=== PATIENT | female | born 1975 | race African-American/Black ===

== ENCOUNTER 2021-09-16 23:37 | Emergency (ER) | payer OTHER ==
[~2021-09-16] VITALS: Ht 167.6 cm; Wt 56.7 kg
--- NOTE | 2021-09-16 23:43 | NUR ---
PATIENT BIBSELF C/O +SI/-HI, PT STATED SHE HAS BEEN WALKING INTO TRAFFIC. PATIENT IS A/O X 3, RR EVEN AND UNLABORED, NO SOB NOTED. PATIENT VSS. PATIENT TAKEN TO ER BED. AMBULATES WITH STEADT GAIT, SKIN INTACT. BELONGINGS TAKEN. WILL CONTINUE TO MONITOR.
--- NOTE | 2021-09-16 23:47 | NUR ---
ECONOMIC FORECASTER AT PT'S BEDSIDE
[2021-09-17 00:07] LABS: CALCIUM, SERUM 9.4 mg/dL (8.5-10.1); CARBON DIOXIDE 29 mmol/L (21-32); CHLORIDE 102 mmol/L (98-107); CREATININE 0.9 mg/dL (0.6-1.3); GLUCOSE 124 mg/dL (74-106); POTASSIUM 3.3 mmol/L (3.5-5.1); SODIUM SERUM 136 mmol/L (136-145); UREA NITROGEN, BLOOD 13 mg/dL (7-18)
[2021-09-17 00:11] LABS: BASOPHILS # (AUTO) 0.1 K/uL (0.0-0.2); BASOPHILS % (AUTO) 0.7 % (0.0-2.0); EOSINOPHILS % (AUTO) 1.7 % (0.0-6.0); HEMATOCRIT 38 % (33-45); HEMOGLOBIN 12.2 g/dL (11.5-14.8); LYMPHOCYTES % (AUTO) 31.1 % (20.0-44.0); MEAN CORPUSCULAR HGB CONC 32 g/dl (31.0-36.0); MEAN CORPUSCULAR VOLUME 88 fL (82-100); MONOCYTES # (AUTO) 0.6 K/uL (0.1-1.30); MONOCYTES % (AUTO) 6.3 % (2.0-12.0); NEUTROPHILS # (AUTO) 5.8 K/uL (1.8-8.9); NEUTROPHILS % (AUTO) 60.2 % (43.0-81.0); PLATELET COUNT (AUTO) 202 K/uL (150-450); RED BLOOD CELL COUNT(AUTO) 4.31 MIL/uL (4.0-5.2); WHITE BLOOD COUNT (AUTO) 9.7 K/uL (4.3-11.0)
[2021-09-17 00:21] LABS: ALANINE AMINOTRANSFERASE 17 U/L (12-78); ALBUMIN 3.8 g/dL (3.4-5.0); ALCOHOL, BLOOD < 3 mg/dL (0-0); ALKALINE PHOSPHATASE 63 U/L (46-116); ASPARTATE AMINOTRANSFERASE 20 U/L (15-37); BILIRUBIN,DIRECT 0.1 mg/dL (0.0-0.2); BILIRUBIN,TOTAL 0.2 mg/dL (0.2-1.0); TOTAL PROTEIN, SERUM 7.5 g/dL (6.4-8.2)
[2021-09-17 00:29] LABS: ACETAMINOPHEN 2 ug/ml (10-30)
--- NOTE | 2021-09-17 01:39 | NUR ---
FACESHEET AND CLINICALS FAXED TO [facility].
[2021-09-17 03:45] LABS: BILIRUBIN,URINE NEGATIVE (NEGATIVE); COLOR,URINE YELLOW (YELLOW); LEUKOCYTE ESTERASE ,URINE NEGATIVE (NEGATIVE); NITRITE, URINE NEGATIVE (NEGATIVE); PH,URINE 5.5 (5.0-8.0); PROTEIN,URINE NEGATIVE (NEGATIVE); UGLUCOSE NEGATIVE (NEGATIVE); UROBILINOGEN,URINE 0.2 EU/dL (0.2)
[2021-09-17 04:00] LABS: BACTERIA,URINE None seen /HPF (None Seen); RBC,URINE 0-2 /HPF (0-2); SQUAMOUS EPITHELIAL CELL,UR Few /HPF (None Seen); WBC,URINE 0-2 /HPF (0-3)
[2021-09-17 04:01] LABS: CALCIUM OXALATE CRYSTALS,UR Few /HPF (None Seen); MUCUS,URINE Few /LPF (None Seen)
--- NOTE | 2021-09-17 04:03 | NUR ---
WHITNEY FROM [facility] INTAKE CALLED TO INFORM THAT ROOMS WILL BE AVAILABLE AFTER DISCHRGES AT 11AM
--- NOTE | 2021-09-17 12:11 | NUR ---
[facility] requested urine HCG, Qual. FAXED results over to [facility] [fax: [phone]].
--- NOTE | 2021-09-17 13:37 | NUR ---
CALLED [facility], STILL WAITING FOR FEEDBACK.
[2021-09-17 14:02] VITALS: BP 131/74
--- NOTE | 2021-09-17 15:18 | NUR ---
Pt. accepted to [facility] under Dr. Holden. Please call in for report [[phone]], [address].
--- NOTE | 2021-09-17 16:34 | NUR ---
REPORT GIVEN TO NURSE HARMON FROM [facility] FOR [facility]
--- NOTE | 2021-09-17 16:35 | NUR ---
THE PATIENT IS DISCHARGED TO [facility] IN STABLE CONDITION VIA ARRANGED TRANSPO.
== END 2021-09-17 16:36 ==
LOC: ER 23:37
DX: R45.851 Suicidal ideations (principal); F19.10 Other psychoactive substance abuse, uncomplicated; E87.6 Hypokalemia; Z20.822 Contact with and (suspected) exposure to COVID-19
CPT/HCPCS: 36415; 80048; 80076; 80143; 80307; 80320; 81001; 84703; 85025; 87426; 99285; C9803; G0480